=== PATIENT | male | born 1940 | race Caucasian/White ===

== ENCOUNTER → 2018-10-25 | Outpatient (CLI) | payer MEDICARE | END | disposition home or self-care (01) | LOC: PCVCCLINIC 12:30 | PROVIDERS: ATTEND Internal Medicine | DX: I47.2 Ventricular tachycardia (principal); I25.5 Ischemic cardiomyopathy; I25.10 Atherosclerotic heart disease of native coronary artery without angina pectoris; K43.9 Ventral hernia without obstruction or gangrene; I12.9 Hypertensive chronic kidney disease with stage 1 through stage 4 chronic kidney disease, or unspecified chronic kidney disease; E11.22 Type 2 diabetes mellitus with diabetic chronic kidney disease; N18.9 Chronic kidney disease, unspecified; J43.2 Centrilobular emphysema; Z79.4 Long term (current) use of insulin; Z87.891 Personal history of nicotine dependence; Z79.899 Other long term (current) drug therapy | CPT/HCPCS: 93005; G0463 ==

== ENCOUNTER → 2018-12-04 | Outpatient (CLI) | payer MEDICARE ==
--- NOTE | 2018-12-04 12:38 | PCVCIMAG ---
EXAM: ABDOMINAL ULTRASOUND COMPLETE INDICATION: Abdominal pain FINDINGS: Gallbladder: No gallstones. No wall thickening or abnormal pericholecystic fluid. Liver: Normal in size measuring 18.8 cm in length. No focal masses. Bile ducts: No intra or extra hepatic bile duct dilatation. The common bile duct measures 3.1 mm. Pancreas: Unremarkable where seen. Spleen: Normal in size measuring 10.1 cm in greatest dimension. No focal masses. Right kidney: No hydronephrosis. Length measures 10.4 cm. Left kidney: No hydronephrosis. Length measures 10.7 cm. Inferior vena cava: Normal in size where seen. Aorta: Normal in caliber where seen. IMPRESSION: Mild diffuse increased echogenicity throughout the liver most compatible with diffuse fatty infiltration. Abdomen otherwise unremarkable. No evidence of cholelithiasis. LOC:[id number]
== END | disposition home or self-care (01) ==
LOC: PCVCIMAG 09:45
PROVIDERS: ATTEND Internal Medicine
DX: R10.9 Unspecified abdominal pain (principal); I25.10 Atherosclerotic heart disease of native coronary artery without angina pectoris; I25.5 Ischemic cardiomyopathy; I47.2 Ventricular tachycardia; J44.9 Chronic obstructive pulmonary disease, unspecified; I12.9 Hypertensive chronic kidney disease with stage 1 through stage 4 chronic kidney disease, or unspecified chronic kidney disease; N18.9 Chronic kidney disease, unspecified; Z95.1 Presence of aortocoronary bypass graft; Z87.891 Personal history of nicotine dependence; Z88.8 Allergy status to other drugs, medicaments and biological substances
CPT/HCPCS: 76700; 93005; G0463

== ENCOUNTER → 2019-01-18 | Outpatient (CLI) | payer MEDICARE | END | disposition home or self-care (01) | LOC: PCVCCLINIC 11:00 | PROVIDERS: ATTEND Internal Medicine | DX: I25.10 Atherosclerotic heart disease of native coronary artery without angina pectoris (principal); I25.5 Ischemic cardiomyopathy; I47.2 Ventricular tachycardia; I12.9 Hypertensive chronic kidney disease with stage 1 through stage 4 chronic kidney disease, or unspecified chronic kidney disease; N18.9 Chronic kidney disease, unspecified; E78.5 Hyperlipidemia, unspecified; J44.9 Chronic obstructive pulmonary disease, unspecified; Z95.1 Presence of aortocoronary bypass graft | CPT/HCPCS: 36415; 80061; 93005; 93283; G0463 ==